=== PATIENT | male | born 1990 | race Caucasian/White ===

== ENCOUNTER → 2023-10-28 15:07 | Outpatient (CLI) | payer OTHER, SELFPAY ==
--- NOTE | 2023-10-28 15:10 | DI.RAD.S_ITS ---
PROCEDURE: XR SHOULDER LT MIN 2V INDICATIONS: L and I, left shoulder strain TECHNIQUE: 3 views of the shoulder were acquired. COMPARISON: None. FINDINGS: Bones: No fractures or dislocations. No suspicious bony lesions. Visualized ribs appear intact. Soft tissues: No suspicious soft tissue calcifications. IMPRESSION: No acute osseous abnormality. If pain persists with conservative management, consider repeat x-ray in 10-14 days or cross-sectional imaging. Dictated by: Kedar Espinosa M.D. on 10/28/2023 at 15:58 Approved by: Kedar Espinosa M.D. on 10/28/2023 at 15:59
== END ==
PROVIDERS: Referring Provider Nurse Practitioner Family; Visit Provider Nurse Practitioner Family
DX: S46.912A Strain of unspecified muscle, fascia and tendon at shoulder and upper arm level, left arm, initial encounter (principal); X58.XXXA Exposure to other specified factors, initial encounter
CPT/HCPCS: 73030